=== PATIENT | female | born 1990 | race Two or more races ===

== ENCOUNTER 2018-10-06 13:39 | Emergency (ER) | payer BC, MEDICAID ==
[~2018-10-06] VITALS: Ht 147.3 cm; Wt 83.9 kg
[2018-10-06 13:59] VITALS: BP 152/71
[2018-10-06 14:16] LABS: Urine Bacteria FEW /hpf (None Seen); Urine Blood Negative /uL (Negative); Urine Mucus FEW (None Seen); Urine Specific Gravity 1.026 (1.001-1.035); Urine WBC 19 /hpf (0 - 5)
== END 2018-10-06 15:57 | disposition home or self-care (01) ==
LOC: ER 13:39
DX: O23.41 Unspecified infection of urinary tract in pregnancy, first trimester (principal); Z3A.01 Less than 8 weeks gestation of pregnancy
CPT/HCPCS: 36415; 76801; 81001; 84702